=== PATIENT | male | born 1940 | race Caucasian/White ===

== ENCOUNTER 2016-10-03 11:28 | Emergency (ER) | payer MEDICARE, BC ==
--- NOTE | ~2016-10-03 | CT98 ---
[facility] A Service of [facility] RADIOLOGY TEXT RESULTS PATIENT: EDUARDO BARTON LOCATION: [facility] : 42 UNIT #: [id number] AGE: [address]: Mindy Goode MD SEX: M ORDER DR: [id number] [facility] [address] [place], [place] [address] [id number] E MR#: [id number] Acc #: [id number] NAME: EDUARDO BARTON : 1940 SEX: M STUDY DATE/TIME: 10/03/2016 14:14 UNIT: [facility] ROOM: STUDY DESCRIPTION: CT Lumbar Spine Wo Cont Attending Physician: Mindy Goode M.D. Ordering Physician: Mindy Goode M.D. Primary Care Physician: Brian Busby M.D. MEDICAL IMAGING REPORT This report is preliminary unless electronic signature is present EXAM CT lumbar spine without contrast. DATE 10/03/2016 HISTORY 76-year-old male with low back pain today after falling and tripping over oxygen tubing at [place]. COMPARISON Lumbar spine radiographs 10/03/2016. CT lumbar spine 06/18/2008. PROCEDURE 2 mm noncontrast axial images through the lumbar spine. Sagittal and coronal reformatted images were obtained. This CT exam was performed with one or more of the following radiation dose reduction techniques: automatic exposure control, adjustment of mA and/or kV according to patient size, and iterative reconstruction. FINDINGS No acute lumbar spine fracture or subluxation is seen. Previously questioned irregularity at superior endplate of T12 is thought to be chronic. Vacuum disc phenomenon is present at multiple lumbar levels. There is mild diminished disc height at L5-S1 with endplate sclerosis. Schmorl node protrusion at the inferior endplate of L4. At L2-3, there is mild bilateral facet arthropathy and mild concentric disc bulge. No high-grade canal or foraminal stenosis is seen. At L3-4, there is mild concentric disc bulge with mild to moderate bilateral facet arthropathy and ligamentum flavum hypertrophy. Probable [facility] A Service of [facility] RADIOLOGY TEXT RESULTS PATIENT: EDUARDO BARTON LOCATION: [facility] #: [id number] : 42 UNIT #: [id number] AGE: [address]: Mindy Goode MD SEX: M ORDER DR: moderate canal stenosis and mild to moderate bilateral inferior neural foraminal narrowing. At L4-5, there is severe bilateral facet arthropathy with ligament flavum hypertrophy and mild concentric disc bulge. There is resulting moderate to severe canal stenosis and probable moderate bilateral neural foraminal narrowing, left greater than right. At L5-S1, there is broad-based posterior disc osteophyte formation with moderate bilateral facet arthropathy. There is mild canal stenosis with indentation upon the anterior thecal sac. The disc may indent the bilateral S1 nerve roots in the canal. Suspected severe right, moderate left neural foraminal narrowing. IMPRESSION 1. No acute lumbar spine fracture or subluxation. 2. T12 vertebral body is within normal limits. More specifically, no acute appearing compression deformity is seen. 3. Multilevel degenerative changes of the lumbar spine as described in the report. Most significant level is thought to be at L4-5, where there is severe canal stenosis and probable moderate to severe bilateral neural foraminal narrowing and severe right neural foraminal narrowing at L5-S1. 4. 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 Additionally, there is a 5.6 x 5.7 cm fluid density or cystic type lesion in the left lower quadrant of the abdomen. It does not appear to arise from the kidney. It is not seen on a CT abdomen of 03/27/2010. Consider CT abdomen and pelvis followup. The followup can be performed on a nonemergent basis. 5. Nonobstructing left renal stone. Dictated by... Julissa Nye M.D. THIS IS AN ELECTRONICALLY VERIFIED REPORT Julissa Nye M.D. at 10/04/2016 2:40 PM JASON/renee TD: 10/03/2016 16:24 JOB #: [id number] MEDICAL IMAGING REPORT COPY
--- NOTE | ~2016-10-03 | CR150 ---
[facility] A Service of [facility] & [facility] RADIOLOGY TEXT RESULTS PATIENT: EDUARDO BARTON LOCATION: [facility] : 41 UNIT #: [id number] AGE: [address]: Mindy Goode MD SEX: M ORDER DR: [id number] [facility] [address] [place], [place] [address] [id number] E MR#: [id number] Acc #: [id number] NAME: EDUARDO BARTON : 1940 SEX: M STUDY DATE/TIME: 10/03/2016 11:28 UNIT: [facility] ROOM: STUDY DESCRIPTION: CR Hip Min 2 Views Lt Attending Physician: Mindy Goode M.D. Ordering Physician: Mindy Goode M.D. Primary Care Physician: Brian Busby M.D. MEDICAL IMAGING REPORT This report is preliminary unless electronic signature is present EXAM Left hip series dated 10/03/2016. COMPARISON CT pelvis dated 03/27/2010. HISTORY Left hip pain post fall today. FINDINGS 2 views of the left hip were obtained. No acute displaced fracture or dislocation. Arthritic changes are noted in bilateral hips and lower lumbar spine, and bilateral SI joints. There are calcifications in the pelvic soft tissues just above the pubic symphysis. It could be related to prostatic calcification. The CT pelvis from 03/27/2010 did have prostate calcifications. Dictated by... Jono Benedict M.D. THIS IS AN ELECTRONICALLY VERIFIED REPORT Jono Benedict M.D. at 10/04/2016 4:56 PM CPR/tmw TD: 10/03/2016 14:21 JOB #: [id number] MEDICAL IMAGING REPORT COPY
--- NOTE | ~2016-10-03 | CT71 ---
[facility] A Service of [facility] RADIOLOGY TEXT RESULTS PATIENT: EDUARDO BARTON LOCATION: [facility] : 41 UNIT #: [id number] AGE: [address]: Mindy Goode MD SEX: M ORDER DR: [id number] [facility] [address] [place], [place] [address] [id number] E MR#: [id number] Acc #: [id number] NAME: EDUARDO BARTON : 1940 SEX: M STUDY DATE/TIME: 10/03/2016 11:49 UNIT: [facility] ROOM: STUDY DESCRIPTION: CT Head Wo Contrast Attending Physician: Mindy Goode M.D. Ordering Physician: Mindy Goode M.D. Primary Care Physician: Brian Busby M.D. MEDICAL IMAGING REPORT This report is preliminary unless electronic signature is present EXAM CT head without contrast dated 10/03/2016. COMPARISON None. HISTORY Patient tripped over oxygen tubing at [facility] and fell. Hit left side of the head with headache today. TECHNIQUE This CT exam was performed with one or more of the following radiation dose reduction techniques: automatic exposure control, adjustment of mA and/or kV according to patient size, and iterative reconstruction. FINDINGS CT of the head was obtained without contrast in the axial plane as per the protocol. There is retrocerebellar hypodense lesion with CSF density suggestive of an arachnoid cyst. It measures up to 2 cm in maximum AP dimension posterior to the cerebellar vermis. The remaining brain demonstrates scattered hypodensities in the white matter both in the periventricular and subcortical regions, bilateral basal ganglia. Atherosclerotic arteriovascular calcifications are in bilateral ICA and bilateral vertebral arteries. Nasal septum is slightly deviated to the right. There is complete opacification of the left maxillary antrum with thickening of the sinus wall. Mixed density components are noted within the left maxillary antrum. Imaged orbits with the ocular structures do not demonstrate any significant abnormality. There is diffuse fatty infiltration of visualized right parotid gland. Left parotid gland was not seen. No fracture. Mastoid air cells are well-aerated. IMPRESSION 1. Scattered hypodensities are noted in the brain, predominately in the STS. [facility] A Service of [facility] RADIOLOGY TEXT RESULTS PATIENT: EDUARDO BARTON LOCATION: [facility] : 42 UNIT #: [id number] AGE: [address]: Mindy Goode MD SEX: M ORDER DR: central tentorial region suggestive of encephalomalacic changes and gliosis from prior insult. Superimposed acute insult cannot be excluded. No significant edema is seen nor is there any midline shift or hydrocephalus. 2. Retrocerebellar arachnoid cyst, benign. 3. Complete opacification of the left maxillary antrum with mucosal thickening of varying densities. 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 4. No acute intracranial hemorrhage or obvious fracture. Dictated by... Jono Benedict M.D. THIS IS AN ELECTRONICALLY VERIFIED REPORT Jono Benedict M.D. at 10/04/2016 4:56 PM CPR/pc TD: 10/03/2016 14:25 JOB #: [id number] MEDICAL IMAGING REPORT COPY
--- NOTE | ~2016-10-03 | CR93 ---
[facility] A Service of [facility] & [facility] RADIOLOGY TEXT RESULTS PATIENT: EDUARDO BARTON LOCATION: [facility] : 42 UNIT #: [id number] AGE: [address]: Mindy Goode MD SEX: M ORDER DR: [id number] [facility] [address] [place], [place] [address] [id number] E MR#: [id number] Acc #: [id number] NAME: EDUARDO BARTON : 1940 SEX: M STUDY DATE/TIME: 10/03/2016 11:18 UNIT: [facility] ROOM: STUDY DESCRIPTION: CR Elbow Min 3 Views Lt Attending Physician: Mindy Goode M.D. Ordering Physician: Mindy Goode M.D. Primary Care Physician: Brian Busby M.D. MEDICAL IMAGING REPORT This report is preliminary unless electronic signature is present EXAM Left elbow. HISTORY Fall today with left elbow pain. FINDINGS Three views of the left elbow were obtained. Bones are normal. No fracture or effusion. IMPRESSION Normal left elbow. Dictated by... Jimbo Medina M.D. THIS IS AN ELECTRONICALLY VERIFIED REPORT Jimbo Medina M.D. at 10/03/2016 3:13 PM Vanesa TD: 10/03/2016 14:11 JOB #: [id number] MEDICAL IMAGING REPORT COPY
--- NOTE | ~2016-10-03 | CR181 ---
[facility] A Service of [facility] & [facility] RADIOLOGY TEXT RESULTS PATIENT: EDUARDO BARTON LOCATION: [facility] : 42 UNIT #: [id number] AGE: [address]: Mindy Goode MD SEX: M ORDER DR: [id number] [facility] [address] [place], [place] [address] [id number] E MR#: [id number] Acc #: [id number] NAME: EDUARDO BARTON : 1940 SEX: M STUDY DATE/TIME: 10/03/2016 11:32 UNIT: [facility] ROOM: STUDY DESCRIPTION: CR Lumbar Spine 2 or 3 Views Attending Physician: Mindy Goode M.D. Ordering Physician: Mindy Goode M.D. Primary Care Physician: Brian Busby M.D. MEDICAL IMAGING REPORT This report is preliminary unless electronic signature is present EXAM Lumbar spine series 10/03/[address] abdomen and pelvis dated 07/25/2015, CT lumbar spine without contrast dated 06/18/2008 HISTORY Fell today with back pain FINDINGS Vertebral body heights are relatively preserved. Endplate osteophytes are noted in the lumbar spine from the L3 to S1 with vacuum disc at L5-S1 and to a lesser degree at L4-5. Pedicles and transverse process are intact. There are probably mild bilateral facet hypertrophic changes at L5-S1 and to a lesser degree at L4-5. Atherosclerotic aortic vascular calcifications are seen. IMPRESSION 1. No acute fracture is seen in the lumbar spine. Mixed degenerative changes are noted in the lower lumbar spine. 2. There is some superior endplate irregularity noted in 1 of the lateral views at T12. If patient has any pain in this region, CT can be considered. Subtle age indeterminate superior endplate compression deformity of T12 cannot be excluded. Dictated by... Jono Benedict M.D. THIS IS AN ELECTRONICALLY VERIFIED REPORT Jono Benedict M.D. at 10/04/2016 4:57 PM CPR/to STS. [facility] A Service of [facility] & [facility] RADIOLOGY TEXT RESULTS PATIENT: EDUARDO BARTON LOCATION: [facility] #: [id number] : 42 UNIT #: [id number] AGE: [address]: Mindy Goode MD SEX: M ORDER DR: TD: 10/03/2016 15:04 JOB #: [id number] MEDICAL IMAGING REPORT COPY
== END 2016-10-03 17:39 | disposition home or self-care (01) ==
LOC: CED 11:28
DX: S70.02XA Contusion of left hip, initial encounter (principal); I11.0 Hypertensive heart disease with heart failure; I50.9 Heart failure, unspecified; E78.5 Hyperlipidemia, unspecified; K21.9 Gastro-esophageal reflux disease without esophagitis; W01.0XXA Fall on same level from slipping, tripping and stumbling without subsequent striking against object, initial encounter; Y92.9 Unspecified place or not applicable
CPT/HCPCS: 70450; 72100; 72131; 73080; 73502; 99284